=== PATIENT | female | born 1965 | race Caucasian/White ===

== ENCOUNTER 2016-12-06 20:20 | Emergency (ER) | payer OTHER ==
[~2016-12-06] VITALS: Ht 177.8 cm; Wt 131.5 kg
[~2016-12-06 20:20] MED LIST: BUPROPION HYDR150 M1 PO; CYMBALTA30 M1 PO; DEPAKOTE500 M1 PO; EPIPEN 2-PAK1 MG/ML IM; FERROUS SULFAT325 M3 PO; FISH OIL500 MG PO; GLUCOPHAGE XR500 M1 PO; LANTUS SOL100 UNIT/1 SC; LEVOTHYROXINE0.2 M2 PO; LEVOTHYROXINE200 MC1 PO; LEXAPRO10 M1 PO; LOSARTAN POTAS100 M1 PO; LOSARTAN POTAS100 MG PO; METFORMIN500 MG PO; NATURAL IRON65 MG PO; NEURONTIN300 M1 PO; PROVENTIL HFA6.7 GM INH; VITAMIN D31000 UNI1 PO; VRAYLAR4.5 MG PO; ZOCOR40 M1 PO; ZOFRAN4 M1 SL
--- NOTE | 2016-12-06 20:54 | ED SKIN/ALLERGY COMPLAINT ---
History of Present Illness General Chief Complaint: Skin Rash/ Abcess Stated Complaint: ABCESS? TO LLQ SINCE MONDAY Source: patient Exam Limitations: no limitations Vital Signs & Intake/Output Vital Signs & Intake/Output Vital Signs Date Time Temp Pulse Resp B/P B/P Pulse O2 O2 Flow FiO2 Mean Ox Delivery Rate 12/06 2230 98.8 84 18 113/62 98 Room Air 12/06 2129 Room Air 12/06 2028 97.6 102 20 150/90 96 Room Air Allergies Coded Allergies: venom-honey bee (BEE VENOM (HONEY BEE)) (ANAPHYLAXIS 04/04/16) Reconcile Medications Albuterol Sulfate (Proventil Hfa) 6.7 GM HFA.AER.AD 2 PUF INH PRN ASTHMA ( Reported) Amoxicillin 875 MG TABLET 1 TAB PO BID cellulitis Cariprazine HCl (Vraylar) 4.5 MG CAPSULE 1 CAP PO DAILY BIPOLAR (Reported) Cholecalciferol (Vitamin D3) (Vitamin D3) 1,000 UNIT CAPSULE 1 CAP PO DAILY SUPPLEMENT (Reported) Divalproex Sodium (Depakote) 500 MG TABLET.DR 1 TAB PO BID BIPOLAR (Reported) Duloxetine Hydrochloride (Cymbalta) 30 MG CAPSULE.DR 1 CAP PO DAILY BIPOLAR ( Reported) Escitalopram Oxalate (Lexapro) 10 MG TABLET 1 TAB PO DAILY BIPOLAR (Reported) Ferrous Sulfate 325 MG TABLET 1 TAB PO DAILY SUPPLEMENT (Reported) Gabapentin (Neurontin) 300 MG CAPSULE 2 CAP PO TID UNKNOWN (Reported) Insulin Glargine,Hum.rec.anlog (Lantus Solostar) 100 UNIT/1 ML INSULN.PEN 54 UNITS SC QPM DIABETES (Reported) Levothyroxine Sodium 200 MCG TABLET 1 TAB PO DAILY THYROID (Reported) Losartan Potassium 100 MG TABLET 1 TAB PO DAILY BP (Reported) Metformin HCl (Glucophage XR) 500 MG TAB.ER.24H 1 TAB PO BID DIABETES ( Reported) with food Simvastatin (Zocor*) 40 MG TABLET 1 TAB PO DAILY CHOLESTEROL (Reported) Sulfamethoxazole/Trimethoprim (Bactrim Ds Tablet) 800 MG-160 MG TABLET 1 TAB PO BID cellulitis/abscess Triage Note: DRAINING ULCERATION ON ABD STARTED ABOUT 24 HRS AGO W/ INTERMITTEN FEVER Triage Nurses Notes Reviewed? yes Onset: Abrupt Duration: day(s):, constant, continues in ED Timing: recent history Severity: mild, moderate HPI: 51-year-old female comes into emergency room with complaints of infection to her left lower abdomen. Patient reports it started off as a cyst and then rupture. Patient has some pain to the left lower abdomen. Denies any fever chills or flulike symptoms. Denies any other associated symptoms. Nothing seems to make the symptoms better or worse. Patient has a history of diabetes. Denies any bites or trauma to the area. Past History Travel History Traveled to [place] past 21 day No Medical History Any Pertinent Medical History? see below for history Neurological: migraine EENT: NONE Cardiovascular: hypertension, hyperlipidemia Respiratory: obstructive sleep apnea Psychiatric: depression Endocrine: diabetes, hypothyroidism, LYME DISEASE Surgical History Surgical History: R FOOT SURGERY 12/02 L ANKLE FX Psychosocial History What is your primary language Yi Family History Hx Contributory? No Review of Systems Review of Systems Constitutional: Reports: no symptoms. EENTM: Reports: no symptoms. Respiratory: Reports: no symptoms. Cardiovascular: Reports: no symptoms. GI: Reports: no symptoms. Genitourinary: Reports: no symptoms. Musculoskeletal: Reports: no symptoms. Skin: Reports: see HPI. Neurological/Psychological: Reports: no symptoms. Hematologic/Endocrine: Reports: no symptoms. Immunologic/Allergic: Reports: no symptoms. All Other Systems: Reviewed and Negative Physical Exam Physical Exam General Appearance: well developed/nourished, mild distress Head: atraumatic Eyes: Bilateral: normal appearance. Ears, Nose, Throat: normal ENT inspection, hearing grossly normal Neck: normal inspection Respiratory: no respiratory distress Cardiovascular: regular rate/rhythm Back: normal inspection Extremities: normal inspection, normal range of motion, no edema Neurologic/Psych: awake, alert, oriented x 3, normal mood/affect Skin: intact, rash, erythema to left lower abdomen, large red patch, warm, hot to touch, open abscess, draining, Skin Problem Location: abdomen Skin Problem Character: abcess Lymphatic: no anterior cervical ayesha Progress Differential Diagnosis: abscess/cellulitis, allergic reaction, anaphylaxis, angioedema, asthma, contact dermatitis Plan of Care: Orders Procedure Date/time Status BLOOD CULTURE 12/07 2051 Active LACTIC ACID 12/07 2051 Complete C-REACTIVE PROTEIN 12/07 2051 Complete COMPREHENSIVE METABOLIC PANEL 12/07 2051 Complete CBC WITHOUT DIFFERENTIAL 12/07 2051 Complete Laboratory Tests 12/06/16 2352: Lactic Acid Cancelled 12/06/16 2110: Anion Gap 11, Estimated GFR > 60, BUN/Creatinine Ratio 11.1, Glucose 189 H, Lactic Acid 1.7, Calcium 9.1, Total Bilirubin 0.3, AST 31, ALT 52, Alkaline Phosphatase 145 H, C-Reactive Prot, Quant 3.4 H, Total Protein 7.0, Albumin 4.1, Globulin 2.9, Albumin/Globulin Ratio 1.4, CBC w Diff NO MAN DIFF REQ, RBC 4.45, MCV 84.2, MCH 28.5, RDW 15.8 H, MPV 8.4, Gran % 65.8, Lymphocytes % 26.5, Monocytes % 5.8, Eosinophils % 1.2, Basophils % 0.7, Absolute Granulocytes 5.5, Absolute Lymphocytes 2.2, Absolute Monocytes 0.5, Absolute Eosinophils 0.1, Absolute Basophils 0.1, PUBS MCHC 33.8 Microbiology 12/06 2118 BLOOD: Blood Culture - RECD 12/06 2109 BLOOD: Blood Culture - RECD Diagnostic Imaging: Viewed by Me: CT Scan. Discussed w/RAD: CT Scan. Radiology Impression: XAM TYPE: CAT - CT ABD & PELVIS W/O IV CONTRAS EXAMINATION : CT ABDOMEN AND PELVIS WITHOUT CONTRAST CLINICAL INFORMATION: Left abdominal wall abscess. Large cellulitis of. COMPARISON: None TECHNIQUE: Multidetector volumetric imaging was performed from the superior aspect of the liver through the pubic symphysis. Sagittal and coronal reformatted images were obtained on the technologist's workstation. DLP: 1403 mGy-cm FINDINGS: LUNG BASES: The visualized lung bases are unremarkable. LIVER, GALLBLADDER, AND BILIARY TREE: Decreased attenuation of the liver compatible with hepatic steatosis no focal liver lesion. Status post cholecystectomy. No intrahepatic or extrahepatic biliary dilatation. PANCREAS: Unremarkable. SPLEEN: Unremarkable. ADRENAL GLANDS : Unremarkable. KIDNEYS AND URETERS: The kidneys are normal in size, shape, and attenuation. No hydronephrosis, hydroureter, or calculi seen. No perinephric stranding. BLADDER: Unremarkable. GASTROINTESTINAL TRACT: Appendix not clearly visualized. No inflammatory changes in the right lower quadrant in the expected region of the appendix. Large and small bowel normal. Stomach normal. ABDOMINAL WALL: Normal. LYMPH NODES: Normal. VASCULAR: Mild arterial calcification throughout. PELVIC VISCERA: Unremarkable. OSSEOUS STRUCTURES: Mild spondylosis of the lumbar sacral spine Subcutaneous soft tissues :minimal stranding in the subcutaneous soft tissues anteriorly overlying the lower abdomen and pelvis compatible with nonspecific edema but could reflect some minimal cellulitis IMPRESSION: Hepatic steatosis. Minimal stranding in the subcutaneous fat anteriorly in the overlying the lower abdomen and pelvis on the left may reflect nonspecific edema versus soft tissue contusion with cellulitis less likely. DICTATED BY: GÉNESIS HARDY MD DATE/TIME DICTATED:12/06/162146 [employer]IC THER[employer] DATE/TIME TRANSCRIBED:12/06/162146 CONFIDENTIAL, DO NOT COPY WITHOUT APPROPRIATE AUTHORIZATION. Comments: 12/06/2016 11:52:32 PM Abscess is already open. There is no really good discharged to obtain a culture. Patient was given a dose of IV antibiotics and started on oral antibiotics. Afebrile. No white count. Clinically looks well. Strict instructions were patient return if she has any worsening symptoms. She will return for a wound check in 3 days. Warm compresses and sitz baths. Return if any other concerns. Patient understands and agrees with plan of care. No deep abscesses appreciated on the CT scan. Departure Departure Disposition: HOME OR SELF CARE Condition: Stable Clinical Impression Primary Impression: Cellulitis of abdominal wall Secondary Impressions: Abscess Referrals: JASEN NELSON MD (PCP/Family) Additional Instructions: Take Bactrim and amoxicillin as prescribed. Follow-up with general surgeon provided in 3 days. If he cannot get in with general surgeon for reevaluation return to the emergency room for a wound check. Return sooner if any spreading of redness, fever, flulike symptoms, or any other concerns. Please go over all results of today's visit with your primary care doctor. Contact your primary care doctor to let them know you were here in the emergency room. There may be nonspecific findings which may not be related to your visit today here in the emergency room but may require further evaluation and chronic monitoring by your primary care doctor. If you had a laceration today the chance of foreign body always remains. You should follow-up with your primary care doctor for recheck in 3-5 days for a wound check. If you had an x-ray done there is a chance that a fracture could have been missed on initial read and you should follow-up with your primary care doctor for repeat x-rays if symptoms persist. If your blood pressure was elevated here in the emergency room please have rechecked by her primary care doctor within the next 48 hours by your primary care doctor. If you were prescribed a narcotic here in the emergency room or any type of controlled substances you're not allowed to drive while taking this medication or operate any type of heavy machinery. Narcotics can make you feel lightheaded dizziness nausea and can cause constipation. 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 Thank you for choosing [facility] emergency room. Please return to the emergency room immediately if you have any other concerns worsening of symptoms. Departure Forms: Customer Survey General Discharge Information Prescriptions: Current Visit Scripts Amoxicillin 1 TAB PO BID #20 TAB Sulfamethoxazole/Trimethoprim (Bactrim Ds Tablet) 1 TAB PO BID #20 TAB
[2016-12-06 21:20] LABS: ABSOLUTE BASOPHIL COUNT 0.1 /CUMM (0.0-0.2); ABSOLUTE EOSINOPHIL COUNT 0.1 /CUMM (0.0-0.7); ABSOLUTE GRANULOCYTE CT 5.5 /CUMM (1.4-6.5); ABSOLUTE LYMPH COUNT 2.2 /CUMM (1.2-3.4); ABSOLUTE MONOCYTE COUNT 0.5 /CUMM (0.10-0.60); BASOPHIL % 0.7 % (0.0-2.0); EOSINOPHIL % 1.2 % (0-5); GRANULOCYTE % 65.8 % (42.2-75.2); HEMATOCRIT 37.5 % (37-47); MEAN CORPUSCULAR HGB 28.5 PG (27.0-31.0); MEAN CORPUSCULAR HGB CONC 33.8 G/DL (33.0-37.0); MEAN CORPUSCULAR VOLUME 84.2 FL (81.0-99.0); MEAN PLATELET VOLUME 8.4 FL (7.4-10.4); PLATELET COUNT 300 /CUMM (130-400); RBC DISTRIBUTION WIDTH 15.8 % (11.5-14.5); RED BLOOD CELL CT 4.45 /CUMM (4.20-5.40); WHITE BLOOD CELL COUNT 8.4 /CUMM (4.8-10.8)
--- NOTE | 2016-12-06 22:00 | CT SCAN REPORT ---
EXAMINATION: CT ABDOMEN AND PELVIS WITHOUT CONTRAST CLINICAL INFORMATION: Left abdominal wall abscess. Large cellulitis of. COMPARISON: None TECHNIQUE: Multidetector volumetric imaging was performed from the superior aspect of the liver through the pubic symphysis. Sagittal and coronal reformatted images were obtained on the technologist's workstation. DLP: 1403 mGy-cm FINDINGS: LUNG BASES: The visualized lung bases are unremarkable. LIVER, GALLBLADDER, AND BILIARY TREE: Decreased attenuation of the liver compatible with hepatic steatosis no focal liver lesion. Status post cholecystectomy. No intrahepatic or extrahepatic biliary dilatation. PANCREAS: Unremarkable. SPLEEN: Unremarkable. ADRENAL GLANDS: Unremarkable. KIDNEYS AND URETERS: The kidneys are normal in size, shape, and attenuation. No hydronephrosis, hydroureter, or calculi seen. No perinephric stranding. BLADDER: Unremarkable. GASTROINTESTINAL TRACT: Appendix not clearly visualized. No inflammatory changes in the right lower quadrant in the expected region of the appendix. Large and small bowel normal. Stomach normal. ABDOMINAL WALL: Normal. LYMPH NODES: Normal. VASCULAR: Mild arterial calcification throughout. PELVIC VISCERA: Unremarkable. OSSEOUS STRUCTURES: Mild spondylosis of the lumbar sacral spine Subcutaneous soft tissues :minimal stranding in the subcutaneous soft tissues anteriorly overlying the lower abdomen and pelvis compatible with nonspecific edema but could reflect some minimal cellulitis IMPRESSION: Hepatic steatosis. Minimal stranding in the subcutaneous fat anteriorly in the overlying the lower abdomen and pelvis on the left may reflect nonspecific edema versus soft tissue contusion with cellulitis less likely.
[2016-12-06] MEDS ORDERED: AMOXICILLIN875 M1 PO (22:19)
[2016-12-06] MEDS ORDERED: BACTRIM DS TAB1 EACH PO (22:19)
[2016-12-06 22:31] VITALS: BP 113/62
== END 2016-12-06 22:52 ==
LOC: ERH 20:20
PROVIDERS: Physician Assistant Medical
DX: L02.211 Cutaneous abscess of abdominal wall (principal); L03.311 Cellulitis of abdominal wall
CPT/HCPCS: 74176; 87040; 96374

== ENCOUNTER → 2017-10-17 | Day surgery (SDC) | payer OTHER ==
--- NOTE | 2017-10-16 17:40 | History & Physical Pre-Op ---
General Information and HPI History of Present Illness: Magaly is a 52-year-old female with a long-standing and worsening complaint of a painful neuroma right foot. Patient has undergone an extended course of conservative care, including shoe gear and activity modification, rest, immobilization course of NSAIDs. None of this is yielded her any significant relief. The patient was referred to our office from Sai Diaz DPM. The patient presents today for preoperative surgical consultation. Allergies/Medications Allergies: Coded Allergies: venom-honey bee (BEE VENOM (HONEY BEE)) (ANAPHYLAXIS 04/04/16) Home Med list Albuterol Sulfate (Proventil Hfa) 6.7 GM HFA.AER.AD 2 PUF INH PRN ASTHMA ( Reported) Cholecalciferol (Vitamin D3) (Vitamin D) 2,000 UNIT CAPSULE 1 CAP PO BID SUPPLEMENT (Reported) Insulin Degludec (Tresiba Flextouch U-100) (Unknown Strength) INSULN.PEN 64 UNITS SC QPM DM (Reported) Insulin Lispro (Humalog) 100 UNIT/ML VIAL 26 UNITS SC AC DM (Reported) Levothyroxine Sodium 125 MCG TABLET 1 TAB PO BID THYROID (Reported) Losartan/Hydrochlorothiazide (Losartan-Hctz 100-12.5 MG Tab) 100 MG-12.5 MG TABLET 1 TAB PO DAILY BP (Reported) Magnesium Oxide (Magnesium) 400 MG CAPSULE 1 CAP PO DAILY SUPPLEMENT ( Reported) Metformin HCl (Glucophage) 1,000 MG TABLET 1 TAB PO BID DM (Reported) Pregabalin (Lyrica) 100 MG CAPSULE 1 CAP PO BID NEUROPATHY (Reported) Rosuvastatin Calcium (Crestor) 10 MG TABLET 1 TAB PO DAILY CHOLESTEROL ( Reported) Tylenol With Codeine (Tylenol With Codeine #3 Tablet) 300 MG-30 MG TABLET 1 TAB PO Q6P PRN PAIN (Reported) Past History Medical History Neurological: migraine EENT: NONE Cardiovascular: hypertension, hyperlipidemia Respiratory: obstructive sleep apnea Gastrointestinal: pancreatitis Hepatic: FATTY LIVER Renal: NONE Musculoskeletal: osteoarthritis Psychiatric: depression Endocrine: diabetes, hypothyroidism, LYME DISEASE Blood Disorders: anemia Cancer(s): NONE CANDLE WICKER/Reproductive: NONE Surgical History Pertinent Surgical History: R FOOT SURGERY 12/02 L ANKLE FX Review of Systems Review of Systems: Unremarkable except for that noted tissue present illness Exam & Diagnostic Data Physical Exam: Lungs clear bilaterally. Heart sounds rate and rhythm regular. Lower 70 physical exam demonstrates intact pedal pulses bilaterally. Pulses dorsalis pedis and posterior tibial arteries are palpable bilaterally. Patient without any sensory motor deficits. Deep tendon reflexes grossly intact. Patient noted to have significant pain with palpation to the fourth interspace right foot. Positive Harry sign identified. Assessment/Plan Assessment/Plan: Painful neuroma right foot. A lengthy discussion reviewing both surgical and conservative options was held the patient at bedside and the patient elects to go forward with surgery despite the risks. As Ranked By This Provider Problem List: 1. Lesion of right plantar nerve Attending MD Review Statement Attending Statement Attending MD Statement: examined this patient
[~2017-10-17] VITALS: Ht 177.8 cm; Wt 136.1 kg
[~2017-10-17] MED LIST changes: +AMOXICILLIN875 M1 PO; +BACTRIM DS TAB1 EACH PO; +CRESTOR10 M1 PO; +GLUCOPHAGE1000 M1 PO; +HUMALOG100 UNIT/2 SC; +LEVOTHYROXINE125 MCG PO; +LOSARTAN-HCTZ1 EACH PO; +LYRICA100 M1 PO; +MAGNESIUM400 M1 PO; +TRESIBA FL100 UNIT/1 SC; +TYLENOL WITH C1 EACH PO; +VITAMIN D2000 UNIT PO
--- NOTE | 2017-10-17 08:12 | Operative Report ---
Operative/Inv Procedure Report Surgery Date: 10/17/17 Name of Procedure: 1 Excision of neuroma right foot Pre-Operative Diagnosis: 1 Painful neuroma right foot Post-Operative Diagnosis: The same Estimated Blood Loss: scant Surgeon/Sql Manager: Sherif Jacobson DPM, DPM Anesthesia: moderate sedation, block Operative/Procedure Note Note: After obtaining informed consent the patient was brought to the operating room and placed on the operating table in the supine position. The patient isn't securely fastened to the operating table utilizing safety belt. After administration of IV sedation, 10 mL of 0.5% Marcaine plain was infiltrated about the patient's right ankle. A well-padded ankle tourniquet was placed about the patient's right lower extremity. His of Ancef were delivered intravenously times one dose. The right foot and ankle within scrubbed prepped and draped in usual aseptic manner. Right lower extremity is elevated to examine to limb, which point the ankle tourniquet inflated 250 mmHg. Attention directed dorsal aspect the right foot, where a 4 cm incision was made over the first interspace. Dissection was then carried down subtenons tissues. The digital branches of the neuroma were identified and freed. The body of the neuroma was distracted distally and cut proximally. Specimen was passed off the operative field for pathologic inspection. The open wound was then irrigated with normal sterile saline. The deep tissues reports a 4-0 Vicryl skin is reapproximated 4-0 nylon. Incision dressed with Xeroform 4 x 4's Kerlix and Paulo wrap. The patient was noted tolerate both procedure and anesthesia well and the patient was transported from the operating room to recovery via signs stable best assess intact to all digits right foot. Please cc a copy of this dictation to Sai Diaz DPM..
== END ==
LOC: STS 02:05
DX: G57.61 Lesion of plantar nerve, right lower limb (principal); I10 Essential (primary) hypertension; G47.33 Obstructive sleep apnea (adult) (pediatric); E11.9 Type 2 diabetes mellitus without complications; Z79.4 Long term (current) use of insulin; E03.9 Hypothyroidism, unspecified
CPT/HCPCS: 81025; J0690; J2001; J2250